=== PATIENT | male | born 1995 | race African-American/Black ===

== ENCOUNTER 2022-12-25 20:24 | Emergency (ER) | payer OTHER ==
[2022-12-25 20:33] VITALS: BP 131/82; PULSE 72; RESP 16; TEMP 98.5; BMI 36.5
== END 2022-12-25 21:29 | disposition home or self-care (01) ==
LOC: FER 20:24
DX: R22.43 Localized swelling, mass and lump, lower limb, bilateral (principal); M79.604 Pain in right leg; M79.605 Pain in left leg; I87.2 Venous insufficiency (chronic) (peripheral)
CPT/HCPCS: 99282-25